=== PATIENT | female | born 1995 | race Caucasian/White ===

== ENCOUNTER 2018-12-18 21:26 | Emergency (ER) | payer BC ==
[~2018-12-18] VITALS: Ht 152.4 cm; Wt 50.9 kg
[2018-12-18 21:35] VITALS: TEMP 97.9
[2018-12-18 23:14] VITALS: BP 122/92; PULSE 94
== END 2018-12-18 23:17 | disposition home or self-care (01) ==
LOC: COL.ER 21:26
DX: S69.91XA Unspecified injury of right wrist, hand and finger(s), initial encounter (principal); Y92.830 Public park as the place of occurrence of the external cause; W19.XXXA Unspecified fall, initial encounter; Y93.29 Activity, other involving ice and snow
CPT/HCPCS: Q4021